=== PATIENT | male | born 1985 | race Two or more races ===

== ENCOUNTER 2017-11-20 22:28 | Emergency (ER) | payer SELFPAY ==
[~2017-11-20] VITALS: Ht 190.5 cm; Wt 81.6 kg
[2017-11-20 22:29] VITALS: Ht 190.5 cm; Wt 81.6 kg
[2017-11-21 01:14] VITALS: BP 111/75
== END 2017-11-21 01:15 | disposition left against medical advice (07) ==
LOC: ED 22:28
DX: J45.909 Unspecified asthma, uncomplicated (principal)
CPT/HCPCS: 83880; J3105; J7512; J7613; J7644; Q0092

== ENCOUNTER 2017-12-16 07:31 | Emergency (ER) | payer MEDICAID ==
[~2017-12-16] VITALS: Ht 190.5 cm; Wt 73.9 kg
[2017-12-16 07:34] VITALS: Ht 190.5 cm; Wt 73.9 kg
[2017-12-16 09:00] VITALS: BP 133/81
== END 2017-12-16 09:32 | disposition home or self-care (01) ==
LOC: ED 07:31
DX: J45.901 Unspecified asthma with (acute) exacerbation (principal)
CPT/HCPCS: J0171; J7512; J7613; J7644

== ENCOUNTER 2018-01-08 01:49 | Emergency (ER) | payer MEDICAID ==
[~2018-01-08] VITALS: Ht 188 cm; Wt 73.5 kg
[2018-01-08 01:55] VITALS: Ht 188 cm; Wt 73.5 kg
[2018-01-08] MEDS ORDERED: ALBUTEROL0.63 MG/3 IH (03:27)
[2018-01-08 06:17] VITALS: BP 120/84
== END 2018-01-08 06:17 | disposition left against medical advice (07) ==
LOC: ED 01:49 → DU 03:32 → ED 03:32
DX: J45.902 Unspecified asthma with status asthmaticus (principal)
CPT/HCPCS: 83880; 84439; C9113; J2930; J3475; J7613; J7620; Q0092